=== PATIENT | male | born 1975 | race Caucasian/White ===

== ENCOUNTER 2017-02-22 23:30 | Inpatient (IN) | payer SELFPAY ==
[2017-02-22 23:54] LABS: #Basophils 0.1 thou/uL (0.0-0.2); #Lymphocytes 3.1 thou/uL (1.20-3.40); #Monocytes 0.8 thou/uL (0.11-0.59); #Neutrophils 6.1 thou/uL (1.40-6.50); %Basophils 0.9 % (0.0-1.0); %Eosinophils 8.7 % (0.0-10.0); %Lymphocytes 27.7 % (21.0-51.0); %Monocytes 7.4 % (0.0-10.0); Hematocrit 45.7 % (42.0-52.0); Mean Platelet Volume 6.9 fL (7.4-10.4); Red Blood Cell (RBC) Count 4.79 mill/uL (4.70-6.10)
[2017-02-23 00:17] LABS: ALT (SGPT) 41 U/L (8-55); AST (SGOT) 37 U/L (5-34); Alkaline Phosphatase 61 U/L (40-150); Anion Gap 10 mmol/L (10-20); BUN (Urea Nitrogen) 11 mg/dL (8.9-20.6); Bilirubin, Total 0.3 mg/dL (0.2-1.2); CK (CPK) 474 U/L (30-200); Calc. Creatinine Clearance 0 mL/min (70-130); Calcium 9.8 mg/dL (7.8-10.44); Carbon Dioxide 27 mmol/L (22-29); Chloride 103 mmol/L (98-107); Estimated GFR-MDRD Greater than 90; Globulin 2.8 g/dL (2.4-3.5); Lipase 21 U/L (8-78); Protein, Total 6.7 g/dL (6.0-8.3)
--- NOTE | 2017-02-23 00:19 | RAD ---
RADIOGRAPH CHEST 1 VIEW: HISTORY: A 41-year-old male with mid-sternal acute chest pain. FINDINGS: There is no air space density, pulmonary edema, or pneumothorax. The lateral costophrenic angles are sharp. IMPRESSION: No acute pulmonary findings. jn [] POS: [facility]
[2017-02-23 00:20] LABS: Troponin I Less than 0.010 ng/mL (< 0.028)
[2017-02-23 00:27] LABS: Critical Call CKMBM 0
[2017-02-23] MEDS ORDERED: Morphine 4 MG/ML VIAL ONE ×2 (00:57→03:10)
[2017-02-23] MEDS ORDERED: Piperacillin/Tazobactam 4.5 GM in Sodium Chloride 0.9% 100 ML IVPB SCH (03:15)
[2017-02-23 03:22] LABS: Troponin I Less than 0.010 ng/mL (< 0.028)
[2017-02-23] MEDS ORDERED: Ondansetron HCl/PF 4 MG/2 ML Vial IVP PRN ×2 (04:49→15:04)
[2017-02-23] MEDS ORDERED: Ondansetron ODT 4 MG TAB SL PRN (04:49)
[2017-02-23] MEDS ORDERED: Lactated Ringer's 1,000 ML IV SCH (04:49)
[2017-02-23 05:49] VITALS: BMI 29.0
[2017-02-23 06:21] LABS: Troponin I Less than 0.010 ng/mL (< 0.028)
[2017-02-23] MEDS: Morphine 4 MG/ML VIAL IV PRN ×2 (07:25→11:23)
--- NOTE | 2017-02-23 08:53 | ULT ---
PRELIMINARY REPORT/[facility]/EMERGENCY AFTER HOURS PROCEDURE: EXAM: US Abdomen Limited, Right Upper Quadrant EXAM DATE/TIME: Exam ordered 02/23/2017 12:39 AM CLINICAL HISTORY: 41 years old, male; Pain; Other: Chest/abd pain TECHNIQUE: Real-time ultrasound of the right upper quadrant with image documentation. COMPARISON: No relevant prior studies available. FINDINGS: Liver: Hepatic steatosis. No intrahepatic bile duct dilation. Gallbladder: Gallbladder is distended but otherwise normal. No cholelithiasis, wall thickening, or pe richolecystic fluid. Sonographic Gunter sign negative. Common bile duct: Unremarkable as visualized. No stones. No dilation. Pancreas: Unremarkable as visualized. Right kidney: Unremarkable. No stones. No solid mass. No hydronephrosis. IMPRESSION: No acute findings. Thank you for allowing us to participate in the care of your patient. Dictated and Authenticated by: Efrain Machado MD 02/23/2017 1:20 AM Central Time ([place] & [place]) FINAL REPORT RIGHT UPPER QUADRANT ULTRASOUND: The gallbladder appears unremarkable with no evidence of gallstones. The liver, bile ducts, visualiz ed pancreas, and right kidney unremarkable. I am in agreement with the preliminary report. POS: [facility]
--- NOTE | 2017-02-23 08:55 | CT ---
PRELIMINARY REPORT/[facility]/EMERGENCY AFTER HOURS PROCEDURE: EXAM: CT Abdomen and Pelvis With Intravenous Contrast EXAM DATE/TIME: Exam ordered 02/23/2017 2:14 AM CLINICAL HISTORY: 41 years old, male; Pain; Abdominal pain; Localized; Upper; Patient HX: Additional history obtained f rom ems, m41 presents to ed for evaluation of cp, radiating to back, which began last night at 2100 a fter eating dinner. Pt called ems who gave nitro x3, which did not relieve pain, & then gave fentany l, which did relieve pt's pain. Pt reports 1 prior episode of similar sxs, where pt was dxed w/ gall stones. Pt was not able to follow up for this at this time. Pt denies any known h/o cad, pt denies fa tiburcio h/o cad. TECHNIQUE: Axial computed tomography images of the abdomen and pelvis with intravenous contrast. Coronal reformatted images were created and reviewed. COMPARISON: US Gallbladder RUQ 2017-02-23 00:39 FINDINGS: Lower thorax: No acute findings. ABDOMEN: Liver: Unremarkable. No mass. Gallbladder and bile ducts: There is a gallstone lodged in the cystic duct. The gallbladder is disten ded and there is mild pericholecystic stranding and fluid. Findings are compatible with acute cholecy stitis. No biliary ductal dilatation or choledocholithiasis. Pancreas: Unremarkable. No mass. No ductal dilation. Spleen: Unremarkable. No splenomegaly. Adrenals: Unremarkable. No mass. Kidneys and ureters: Unremarkable. No solid mass. No hydronephrosis. Stomach and bowel: Unremarkable. No obstruction. No mucosal thickening. Appendix: Normal appendix. PELVIS: Bladder: Unremarkable. No mass. Reproductive: Unremarkable as visualized. ABDOMEN and PELVIS: Intraperitoneal space: Unremarkable. No free air. No significant fluid collection. Bones/joints: No acute fracture. No dislocation. Soft tissues: Unremarkable. Vasculature: Unremarkable. No abdominal aortic aneurysm. Lymph nodes: Unremarkable. No enlarged lymph nodes. IMPRESSION: Acute cholecystitis with stone lodged in the cystic duct. Thank you for allowing us to participate in the care of your patient. Dictated and Authenticated by: Efrain Machado MD 02/23/2017 2:30 AM Central Time ([place] & [place]) FINAL REPORT CT ABDOMEN AND PELVIS WITH CONTRAST: Multiple axial tomograms obtained with IV enhancement. FINDINGS: There is a calculus lodged in the cystic duct producing gallbladder distention. I am in agreement wi th the preliminary report. POS: [facility]
[2017-02-23] MEDS ORDERED: Ketorolac Tromethamine 30 MG/ML VIAL IVP PRN (09:22)
[2017-02-23] MEDS ORDERED: Acetaminophen 1,000 MG in Premix Bag 1 BAG IVPB PRN (09:23)
[2017-02-23] MEDS ORDERED: Piperacillin/Tazobactam 3.375 GM in Sodium Chloride 0.9% 100 ML IVPB SCH (10:00)
[2017-02-23] MEDS ORDERED: Pantoprazole 40 MG VIAL IVP SCH (11:30)
[2017-02-23 12:18] VITALS: TEMP 97.8
[2017-02-23] MEDS ORDERED: Ketorolac Tromethamine 30 MG/ML VIAL ONE (12:40)
--- NOTE | 2017-02-23 13:05 | HP ---
HISTORY OF PRESENT ILLNESS: Mr. Juan J Benedict is a 41-year-old male who lives in [place], has a 4-year-old son and lives with his common law , has been experiencing epigastric pain, back radiat ion for more than 3 years. Two years ago, he was here and at this facility, he had an ultrasound dem onstrating gallbladder sludge, typical of gallbladder disease, but nonetheless went on to have a HIDA scan with ejection fraction and in addition had an abnormal gallbladder ejection fraction, the test which reproduced his symptoms. He continued with symptoms and was readmitted on 11/2016 with epigast arcadio pain, back radiation and underwent cardiac catheterization that was normal. He was sent home. T he patient has been seen in [place] and instructed to have his gallbladder out sometime. This was several years ago. The patient reports with a severe episode of epigastric pain, back radiation, rep eat CAT scan of the abdomen and pelvis reveals gallstone and large cystic duct with gallbladder outle t obstruction. His liver function tests are normal. He went on to have a gallbladder ultrasound rev ealing normal bile duct caliber without ductal dilatation. As noted above, his liver function tests are normal. ALLERGIES: None. TOBACCO: 1/2 pack per day. ALCOHOL: None. MEDICATIONS: Protonix 40 mg daily, amlodipine besylate 10 mg daily, lisinopril 10 mg b.i.d., ranitid ine 150 mg p.o. b.i.d. PRIMARY CARE PHYSICIAN: Dr. Hoffmann. [facility] pharmacy [facility][id number] preferred. PAST SURGICAL HISTORY: Bilateral inguinal hernia repair, left axillary surgery, left finger surgery, otherwise noncontributory. He has bilateral inguinal hernia repair as a child. PAST MEDICAL HISTORY: Hypertension, BPH. He saw a urologist out of town many years ago and has been maintained on Flomax since that time and this effectively controls his BPH. He has history of GERD and takes ranitidine. REVIEW OF SYSTEMS: Noncontributory. PHYSICAL EXAMINATION: VITAL SIGNS: Temperature 98.3 degrees, 58, 16, 156/89, 5 foot, 785 pounds, BMI 29. LUNGS: Clear to auscultation. CARDIAC: Regular rate and rhythm without murmur or gallop. ABDOMEN: Soft, mild tenderness in epigastric, right upper quadrant with mild guarding. EXTREMITIES: Unremarkable. LABORATORY DATA: Sodium 136, potassium 4.3, BUN 11, creatinine 0.89, GFR greater than 90, glucose 10 9, bilirubin 0.3. Liver function tests are normal. White count 11, hemoglobin 15. ASSESSMENT AND PLAN: 1. Biliary colic. He has had this ongoing for more than 2 years. We recommend laparoscopic video c holecystectomy. Risk of infection, bleeding, visceral and biliary injury, possibly open operation we re discussed. He understands. His issues and questions answered. We will proceed with laparoscopic cholecystectomy. 2. Benign prostatic hypertrophy on Flomax. 3. Hypertension. 4. Tobacco abuse. 5. Gastroesophageal reflux disease, controlled with ranitidine. We will discuss this with him and [facility] follow up office. Overall, we will plan laparoscopic cholecystectomy today and plan discharge home later today on Ultram, Tylenol, and Motrin for pain.
[2017-02-23] MEDS ORDERED: Bupivacaine/Epinephrine 0.25% 30 ML VIAL ONE (13:15)
[2017-02-23] MEDS ORDERED: Fentanyl 100 MCG/2 ML VIAL ONE (13:16)
[2017-02-23] MEDS ORDERED: Dexamethasone 20 MG/5 ML VIAL ONE (14:11)
[2017-02-23] MEDS ORDERED: Lidocaine 1% PF 5 ML VIAL ONE (14:11)
[2017-02-23] MEDS ORDERED: diphenhydrAMINE 50 MG/ML VIAL ONE (14:11)
[2017-02-23] MEDS ORDERED: Glycopyrrolate 0.2 MG/ML 5 ML SYRINGE ONE (14:11)
[2017-02-23] MEDS ORDERED: Ondansetron HCl/PF 4 MG/2 ML Vial ONE (14:11)
[2017-02-23] MEDS ORDERED: Propofol 200 MG/20 ML VIAL ONE (14:11)
[2017-02-23] MEDS ORDERED: Promethazine HCl 25 MG/ML VIAL SLOW IVP PRN (15:04)
[2017-02-23] MEDS ORDERED: Promethazine HCl 25 MG/ML VIAL IM PRN (15:04)
[2017-02-23] MEDS ORDERED: traMADol HCl 50 MG TAB PO PRN ×2 (15:32)
[2017-02-23] MEDS ORDERED: Acetaminophen 500 MG TAB PO PRN (15:32)
[2017-02-23] MEDS ORDERED: Amlodipine 10 MG TAB PO SCH (16:15)
[2017-02-23] MEDS ORDERED: Lisinopril 10 MG TAB PO SCH ×2 (16:15→21:00)
[2017-02-23] MEDS ORDERED: Tamsulosin HCl 0.4 MG CAP PO SCH (16:15)
--- NOTE | 2017-02-23 16:46 | OP ---
DATE: 02/23/2017 PREOPERATIVE DIAGNOSES: Chronic and acute cholecystitis, cholelithiasis. POSTOPERATIVE DIAGNOSIS: Chronic and acute cholecystitis, cholelithiasis. PROCEDURE: Laparoscopic video cholecystectomy. SURGEON: Dr. Mario Olguin ANESTHESIA: General. Local 0.5% Marcaine, 30 mL, mixed with 1% Xylocaine with epinephrine, 30 mL. SPECIMENS: Gallbladder, gallstones. ESTIMATED BLOOD LOSS: 150 mL BLOOD TRANSFUSED: None. FINDINGS: Normal liver. DESCRIPTION OF PROCEDURE: The patient was taken to the operating room where under general anesthesia , abdomen was clipped of hair, prepared with chloraprep, draped in routine fashion. Local anesthetic infiltrated into skin and subcutaneous tissue about the operative site. Infraumbilical incision mad e? pneumoperitoneum to 15 mmHg obtained with the Veress needle, replacing it with a 5 port, video lap aroscope inserted. Right subxiphoid incision made and 11 port placed. Right subcostal incision made mid clavicular anterior axillary lines and 5 ports placed. Liver appeared to be normal. Fundus of the gallbladder grasped and reflected cephalad. Infundibulum grasped and reflected laterally. Cysti c artery and duct dissected free. Critical view obtained with pericholecystic dissection two-thirds of cystic plate. Cystic artery double clipped proximally and divided. Cystic duct dissected free, d ouble clipped proximally, divided. Gallbladder dissected free from the liver bed obtaining good hemo stasis prior to division of final peritoneal attachments. Gallbladder and contents removed and submi tted to Pathology. Hemostasis in the liver bed obtained with the cautery and Nasrin and Surgicel inder lied. Good hemostasis obtained. Irrigant and pneumoperitoneum evacuated. All instruments removed a nd all skin incisions approximated with interrupted subdermal 4-0 Monocryl and DermaGlue applied.
[2017-02-23] MEDS ORDERED: ISOVUE-370 76%-LOCM 1 ML ONE (17:36)
[2017-02-23 18:37] VITALS: BP 160/80
--- NOTE | 2017-02-23 21:47 | DIS ---
DATE OF ADMISSION: 02/22/2017 DATE OF DISCHARGE: 02/23/2017 DISCHARGE DIAGNOSES: 1. Cholecystitis, chronic and acute cholelithiasis 2. Tobacco abuse. 3. BPH. PROCEDURES: Laparoscopic video cholecystectomy. HISTORY: A 41-year-old male presenting with two history of episodes of epigastric pain, back radiati on, nausea. Two years ago, he presented to [facility], ultrasound at this facility reveals sludge. Nonethe less, he went on to have a HIDA scan which was abnormal ejection fraction. Patient recalls that scan injection reproducing these symptoms. He continued with episodes of pain until he presented earlier this year and epigastric pain, back radiation underwent cardiac catheterization that was normal. He was discharged home. He presents at this time with intractable pain that was similar in nature and ultrasound and CAT scan revealed gallstones obstructing the cystic gallbladder outlet. Patient recei misty intravenous fluids, antibiotics overnight and was taken for laparoscopic cholecystectomy after wh ich he is discharged home with follow up in my office in 2-3 weeks. Diet and activity as tolerated. No restrictions. Sent home with Ultram #50, #20 with one refill for pain refractory [id number] r Tylenol and ibuprofen.
[2017-02-24] MEDS ORDERED: Amlodipine 10 MG TAB PO SCH (09:00)
[2017-02-24] MEDS ORDERED: Pantoprazole 40 MG VIAL IVP SCH (09:00)
[2017-02-24] MEDS ORDERED: Tamsulosin HCl 0.4 MG CAP PO SCH (09:00)
[2017-02-28] MEDS ORDERED: Ibuprofen 600 MG TAB PO PRN (15:00)
== END 2017-02-23 18:31 | disposition home or self-care (01) | DRG 419 ==
LOC: ERS 23:30 → SJJU 02-23 04:33
PROVIDERS: ADMIT Specialist; ATTEND Specialist
PROC: 0FT44ZZ Resection of Gallbladder, Percutaneous Endoscopic Approach (ICD-10-PCS; principal; 2017-02-23)
DX: K80.12 Calculus of gallbladder with acute and chronic cholecystitis without obstruction (principal); I10 Essential (primary) hypertension; F17.210 Nicotine dependence, cigarettes, uncomplicated; N40.0 Benign prostatic hyperplasia without lower urinary tract symptoms
CPT/HCPCS: 36415; 71010; 74177; 76705; 80053; 82553; 83690; 84484; 85025; 93005; 94760; 96361; 96365; 96375; 96376; C9113; J0131; J1100; J1200; J1885; J2001; J2270; J2405; J2543; J2704; J3010; J7050

== ENCOUNTER 2020-09-26 14:26 | Emergency (ER) | payer BC, SELFPAY | END 2020-09-26 16:56 | disposition home or self-care (01) | LOC: ERS 14:26 | DX: S61.012A Laceration without foreign body of left thumb without damage to nail, initial encounter (principal); I10 Essential (primary) hypertension; F17.210 Nicotine dependence, cigarettes, uncomplicated; W22.8XXA Striking against or struck by other objects, initial encounter | CPT/HCPCS: 12002; 90471; 90715; J2001 ==

== ENCOUNTER 2025-02-24 17:54 | Inpatient (IN) | payer OTHER ==
[~2025-02-24 17:54] MED LIST: Iopamidol-370 76% 500 ML MDV (1 ML CHARGE) ONE
[2025-02-24] MEDS ORDERED: hydrALAZINE 20 MG/ML VIAL ONE (18:11)
[2025-02-24 18:21] LABS: #Basophils 0.08 10x3/uL (0.0-0.2); #Eosinophils 0.17 10x3/uL (0.0-0.7); #Monocytes 0.61 10x3/uL (0.11-0.59); #Neutrophils 5.05 10x3/uL (1.40-6.50); %Basophils 1.1 % (0.0-1.0); %Eosinophils 2.2 % (0.0-10.0); %Lymphocytes 21.8 % (21.0-51.0); %Monocytes 8.0 % (0.0-10.0); %Neutrophils 66.6 % (42.0-75.0); Hematocrit 50.2 % (42.0-52.0); Hemoglobin 16.5 g/dL (14.0-18.0); Mean Corpuscular Hemoglobin 29.4 pg (27.0-31.0); Mean Corpuscular Volume 89.5 fL (78.0-98.0); Platelet Count 267 10x3/uL (130-400); Red Blood Cell (RBC) Count 5.61 mill/uL (4.70-6.10); White Blood Cell (WBC) Count 7.58 10x3/uL (4.8-10.8)
[2025-02-24 18:38] LABS: Acetaminophen Less than 10 mcg/mL (Less than 10); Salicylate Less than 8.0 mg/dL (Less than 8.0)
[2025-02-24 18:39] LABS: ALT (SGPT) 31 U/L (Less than 45); AST (SGOT) 37 U/L (11-34); Albumin 4.0 g/dL (3.1-4.5); Alkaline Phosphatase 71 U/L (40-110); Anion Gap 15 mmol/L (10-20); BUN (Urea Nitrogen) 17 mg/dL (8.9-20.6); Bilirubin, Total 0.6 mg/dL (0.3-1.2); Calc. Creatinine Clearance 0 mL/min (70-130); Calcium 9.7 mg/dL (7.8-10.44); Carbon Dioxide 29 mmol/L (22-29); Chloride 102 mmol/L (98-107); Globulin 2.6 g/dL (2.4-3.5); Glucose 154 mg/dL (70-105); Lipase 14 U/L (8-78); Magnesium 2.3 mg/dL (1.6-2.6); Potassium 4.0 mmol/L (3.5-5.1); Sodium 142 mmol/L (136-145)
[2025-02-24 19:21] LABS: Bacteria/HPF None Seen HPF (None Seen); CAUTI Indications for Culture Alt mental st,lethar; Cocaine Metabolite Screen Negative (Negative); Glucose, Urine (Dipstick) Normal (Negative); Leukocyte Negative Leu/uL (Negative); Protein, Urine (Dipstick) 10 mg/dL (Neg-Trace); RBC/HPF 0-3 HPF (0-3); THC/Cannabinoid Screen PRELIM POSITIVE (Negative); Tricyclic Screen Negative (Negative); WBC/HPF 0-3 HPF (0-3)
[2025-02-24 19:25] LABS: Specific Gravity, Urine Greater than 1.050 (1.002-1.036)
[2025-02-24 19:27] LABS: Urine Culture Reflex No No
[2025-02-24] MEDS ORDERED: Aspirin Chewable 81 MG TAB ONE (19:46)
[2025-02-24] MEDS ORDERED: Acetaminophen 325 MG TAB PO PRN (19:53)
[2025-02-24] MEDS ORDERED: hydrALAZINE 20 MG/ML VIAL SLOW IVP PRN (19:53)
[2025-02-24] MEDS ORDERED: Ondansetron PF 4 MG/2 ML Vial IVP PRN (19:53)
[2025-02-24 21:34] VITALS: BMI 24.6
[2025-02-24] MEDS: Famotidine 20 MG TAB PO SCH (22:04)
[2025-02-24] MEDS: Melatonin 3 MG TAB PO PRN (22:04)
[2025-02-25] MEDS: Aspirin 81 mg Enteric Coated Tablet PO SCH (09:47)
[2025-02-25] MEDS: Lisinopril 10 MG TAB PO SCH ×2 (09:48→20:19)
[2025-02-25 09:49] LABS: #Basophils 0.07 10x3/uL (0.0-0.2); #Eosinophils 0.21 10x3/uL (0.0-0.7); #Monocytes 0.68 10x3/uL (0.11-0.59); #Neutrophils 5.17 10x3/uL (1.40-6.50); %Basophils 0.9 % (0.0-1.0); %Eosinophils 2.6 % (0.0-10.0); %Lymphocytes 22.4 % (21.0-51.0); %Monocytes 8.6 % (0.0-10.0); %Neutrophils 65.2 % (42.0-75.0); Hematocrit 48.4 % (42.0-52.0); Hemoglobin 15.9 g/dL (14.0-18.0); Mean Corpuscular Hemoglobin 30.0 pg (27.0-31.0); Mean Corpuscular Volume 91.3 fL (78.0-98.0); Platelet Count 292 10x3/uL (130-400); Red Blood Cell (RBC) Count 5.30 mill/uL (4.70-6.10); White Blood Cell (WBC) Count 7.93 10x3/uL (4.8-10.8)
[2025-02-25 10:15] LABS: Anion Gap 10 mmol/L (10-20); BUN (Urea Nitrogen) 13 mg/dL (8.9-20.6); Calc. Creatinine Clearance 95 mL/min (70-130); Calcium 9.7 mg/dL (7.8-10.44); Carbon Dioxide 32 mmol/L (22-29); Cardiac Risk 2.7 (Less than 4.5); Chloride 104 mmol/L (98-107); Cholesterol 136 mg/dl (< 200 Desired); Glucose 110 mg/dL (70-105); HDL Cholesterol 50 mg/dL (>60 Neg Risk); LDL Cholesterol, Calculated 66 mg/dL; Potassium 4.5 mmol/L (3.5-5.1); Sodium 141 mmol/L (136-145); Triglycerides 98 mg/dL (Less than 150)
[2025-02-25] MEDS: NIFEdipine XL 30 MG ER.TAB PO SCH ×2 (14:10→20:19)
[2025-02-25] MEDS: Enoxaparin 40 MG (0.4 mL) SYRINGE SC SCH (20:19)
[2025-02-26] MEDS ORDERED: NIFEdipine XL 30 MG ER.TAB PO SCH (09:00)
[2025-02-26 15:16] VITALS: BP 152/94; TEMP 98
[2025-02-27] MEDS ORDERED: Lisinopril 20 MG TAB PO SCH (09:00)
== END 2025-02-26 19:00 | disposition left against medical advice (07) | DRG 556 ==
LOC: ERS 17:54 → OBSVTOIN 19:45 → OBS 19:45
PROVIDERS: ADMIT Internal Medicine; ATTEND Family Medicine
DX: R29.898 Other symptoms and signs involving the musculoskeletal system (principal); F15.10 Other stimulant abuse, uncomplicated; I10 Essential (primary) hypertension; G31.9 Degenerative disease of nervous system, unspecified; N40.0 Benign prostatic hyperplasia without lower urinary tract symptoms; Z79.899 Other long term (current) drug therapy; Z90.49 Acquired absence of other specified parts of digestive tract
CPT/HCPCS: 36415; 36416; 70450; 70496; 70498; 70551; 71045; 80048; 80053; 80061; 80306; 80307; 81001; 83036; 83690; 83735; 83880; 84443; 84484; 85025; 93005; 93306; 96374; J0360; J1650; Q9967